=== PATIENT | female | born 1990 | race American Indian/Alaskan Native ===

== ENCOUNTER 2017-04-20 18:10 | Emergency (ER) | payer MEDICAID ==
[2017-04-20 18:25] VITALS: BP 117/71; PULSE 86; RESP 16; TEMP 98.5; O2SAT 100
--- NOTE | 2017-04-20 19:21 | ED PDOC ---
Arrival/HPI - General Chief Complaint: Dizziness/Lightheaded Time Seen by Provider: 04/20/17 18:42 Historian: Patient - History of Present Illness Narrative History of Present Illness (Text): you were treated in the ED today for being 16weeks , had a short period of abdomen pain with dizziness/lightheaded without room spinning and thought you were going to pass out but you didn't and otherwise without any nausea/ vomiting/headache/difficulty breathing/chest pain/numbness/tingling/loss of limb function/pain with urination/vaginal bleeding/vaginal discharge. 04/20/17 19:18 Past Medical History - Provider Review Nursing Documentation Reviewed: Yes - Travel History Have you recently traveled outside [place] w/in the past 3 mons?: No - Psychiatric Hx Psychophysiologic Disorder: No Hx Substance Use: No Family/Social History - Physician Review Nursing Documentation Reviewed: Yes Family/Social History: No Known Family HX Smoking Status: Never Smoked Hx Alcohol Use: No Hx Substance Use: No Allergies/Home Meds Allergies/Adverse Reactions: Allergies No Known Allergies Allergy (Verified 04/20/17 18:14) Home Medications: Home Meds Medication Instructions Recorded Confirmed No Known Home Med 04/20/17 04/20/17 Review of Systems - Review of Systems Constitutional: Normal Eyes: Normal ENT: Normal Respiratory: Normal Cardiovascular: Normal Gastrointestinal: Abdominal Pain Genitourinary Female: Normal Musculoskeletal: Normal Skin: Normal Neurological: Normal Endocrine: Normal Hemo/Lymphatic: Normal Psychiatric: Normal Physical Exam Vital Signs Reviewed: Yes Vital Signs Temp Pulse Resp BP Pulse Ox 04/20/17 18:15 98.5 F 86 16 117/71 100 Temperature: Afebrile Blood Pressure: Normal Pulse: Regular Respiratory Rate: Normal Appearance: Positive for: Well-Appearing, Non-Toxic Pain Distress: None Mental Status: Positive for: Alert and Oriented X 3 - Systems Exam Head: Present: Atraumatic, Normocephalic Pupils: Present: PERRL Extroacular Muscles: Present: EOMI Conjunctiva: Present: Normal Ears: Present: Normal Mouth: Present: Moist Mucous Membranes Pharnyx: Present: Normal Nose (External): Present: Atraumatic Nose (Internal): Present: Normal Inspection Neck: Present: Normal Range of Motion Respiratory/Chest: Present: Clear to Auscultation, Good Air Exchange Cardiovascular: Present: Regular Rate and Rhythm Abdomen: No: Tenderness, Distention, Normal Bowel Sounds, Peritoneal Signs, Rebound, Guarding, McBurney's Point Tender, Rovsing's Sign Present, Hernias, Feeding Tubes, Ostomy Tubes, Mass/Organomegaly, Scars, Other Back: Present: Normal Inspection Upper Extremity: Present: Normal Inspection Lower Extremity: Present: Normal Inspection Neurological: Present: GCS=15, CN II-XII Intact, Speech Normal, Motor Func Grossly Intact, Normal Cerebellar Funct, Other (no nystagmus) Skin: Present: Warm, Normal Color Psychiatric: Present: Alert, Oriented x 3, Normal Insight, Normal Concentration Medical Decision Making ED Course and Treatment: you were treated in the ED today for being 16weeks , had a short period of abdomen pain with dizziness/lightheaded without room spinning and thought you were going to pass out but you didn't and otherwise without any nausea/ vomiting/headache/difficulty breathing/chest pain/numbness/tingling/loss of limb function/pain with urination/vaginal bleeding/vaginal discharge. You were otherwise breathing easily, smiling, good strength/sensation, walking easily, clear lungs, no abdomen tenderness, no fever temp 98.5, stable heart rate 86, stable breathing rate 16, excellent oxygen level 100% room air, stable blood pressure 117/71, fingerstick 114 glucose, recommend to do labs, radiology work- up but you refused and cautioned for complications/fetus complications/, but you stated you have had a normal ultrasound a few weeks ago and all your symptoms are resolved in the ED and you want to go home, counselled to monitor symptoms. 1. Recommend follow-up primary care tomorrow days to review symptoms, and complete your repeat ultrasound with obstetrics followup this tuesday as you stated.. 3. If any worsening pain, fever, chills, nausea, vomiting, difficulty breathing, numbness, loss of limb function, pain with urination or any medical condition then return to the ED. 04/20/17 19:24 Reassessment Condition: Improved - Lab Interpretations Lab Results: Lab Results 04/20/17 18:24: POC Glucose (mg/dL) 114 H Disposition/Present on Arrival - Present on Arrival Any Indicators Present on Arrival: No History of DVT/PE: No History of Uncontrolled Diabetes: No Urinary Catheter: No History of Decub. Ulcer: No History Surgical Site Infection Following: None - Disposition Have Diagnosis and Disposition been Completed?: Yes Diagnosis: Lightheaded Disposition: HOME/ ROUTINE Disposition Time: 19:30 Patient Plan: Discharge Condition: IMPROVED Additional Instructions: you were treated in the ED today for being 16weeks , had a short period of abdomen pain with dizziness/lightheaded without room spinning and thought you were going to pass out but you didn't and otherwise without any nausea/ vomiting/headache/difficulty breathing/chest pain/numbness/tingling/loss of limb function/pain with urination/vaginal bleeding/vaginal discharge. You were otherwise breathing easily, smiling, good strength/sensation, walking easily, clear lungs, no abdomen tenderness, no fever temp 98.5, stable heart rate 86, stable breathing rate 16, excellent oxygen level 100% room air, stable blood pressure 117/71, fingerstick 114 glucose, recommend to do labs, radiology work- up but you refused and cautioned for complications/fetus complications/, but you stated you have had a normal ultrasound a few weeks ago and all your symptoms are resolved in the ED and you want to go home, counselled to monitor symptoms. 1. Recommend follow-up primary care tomorrow days to review symptoms, and complete your repeat ultrasound with obstetrics followup this tuesday as you stated.. 3. If any worsening pain, fever, chills, nausea, vomiting, difficulty breathing, numbness, loss of limb function, pain with urination or any medical condition then return to the ED. Referrals: Ginger Madison, [Primary Care Provider] - Follow up with primary Forms: [employer] ([place])
== END 2017-04-20 19:40 | disposition home or self-care (01) ==
LOC: ED 18:10
DX: O26.892 Other specified pregnancy related conditions, second trimester (principal); R42 Dizziness and giddiness; Z3A.16 16 weeks gestation of pregnancy